=== PATIENT | male | born 1985 | race Caucasian/White ===

== ENCOUNTER 2025-01-09 14:32 | Emergency (ER) | payer MEDICAID ==
[~2025-01-09] VITALS: Ht 180.3 cm; Wt 80.0 kg
[2025-01-09 15:40] LABS: BASOPHILS % 0.5 % (0.0-2.0); EOSINOPHILS % 0.9 % (0.0-5.0); HEMATOCRIT. 43.5 % (42.0-52.0); HEMOGLOBIN. 14.9 g/dL (14.0-18.0); LYMPHOCYTES % 20.4 % (20.0-50.0); MEAN PLATELET VOLUME 9.4 fl (7.4-10.4); MONOCYTES % 6.1 % (2.0-8.0); NEUTROPHILS % 72.1 % (40.0-76.0); PLATELET 269 x1000/uL (130-400); RED BLOOD CELL COUNT 4.90 mill/uL (4.7-6.1); RED CELL DISTRIBUTION WIDTH 11.8 % (11.6-14.6)
[2025-01-09 15:50] LABS: INR 1.1
[2025-01-09 15:54] LABS: CREATININE 1.2 mg/dL (0.6-1.3); UREA NITROGEN BLOOD 18 mg/dL (9-23)
[2025-01-09] MEDS: MORPHINE SULFATE 4 MG/ML INJ (FOR IV/IM USE) IV ONE (17:14)
[2025-01-09] MEDS: ONDANSETRON HCL 4MG/2ML INJ IV ONE (17:14)
[2025-01-09] MEDS: AMPICILLIN SOD/SULBACTAM NA 3 G in SODIUM CHLORIDE 0.9% 100 ML IV STA (17:16)
[2025-01-09] MEDS: PROPOFOL 200MG/20ML VIAL IV ONE (19:17)
[2025-01-09 19:54] VITALS: O2SAT 99
[2025-01-09 22:27] VITALS: BP 139/88; PULSE 96; RESP 18; TEMP 36.8; O2SAT 98
== END 2025-01-09 22:30 | disposition short-term general hospital (02) ==
LOC: ER 14:32
DX: S52.592B Other fractures of lower end of left radius, initial encounter for open fracture type I or II (principal); Z98.890 Other specified postprocedural states; V00.131A Fall from skateboard, initial encounter; Y93.51 Activity, roller skating (inline) and skateboarding; Y92.89 Other specified places as the place of occurrence of the external cause; Y99.8 Other external cause status
CPT/HCPCS: 80048; 85025; 85610; 86850; 86900; 86901; 36415; 73090; 73100; 73110; 29125; 96365; 96366; 96375; 99152; 99291; J0295; J2405; J2704; J2270; J7050; Z7610 ×5; 25605; A4565